=== PATIENT | male | born 1940 | race Caucasian/White ===

== ENCOUNTER 2016-12-04 08:39 | Emergency (ER) | payer MEDICARE, OTHER ==
[~2016-12-04] VITALS: Wt 63.0 kg
--- NOTE | 2016-12-04 09:44 | RADRPT ---
PROCEDURE: CT Brain without. CLINICAL INDICATION: Occipital headache. TECHNIQUE: A CT of the brain was performed on multidetector high-resolution CT scanner utilizing a xial sections from the skull base through the vertex without contrast. The scan was reviewed in sof t tissue brain and high frequency resolution bone algorithm windows. Images were reviewed on a high -resolution PACS workstation. One or more the following does reduction techniques were utilized: Aut omated exposure control, adjustment of the mA/ or kV according to patient's size, or use of iterativ e reconstruction technique. The exam CTDI = 43.68 mGy and the DLP = 720.23 mGy-cm. COMPARISON: None available. FINDINGS: The ventricles and sulci are mildly prominent indicative of volume loss. There is no intracranial h emorrhage, mass effect or midline shift. No abnormal intra-axial or extra-axial fluid collections a re seen. The gonzales/white matter differentiation is preserved. There are mild scattered foci of hypoattenuation in the white matter, which are nonspecific in etiol ogy but likely reflect chronic small vessel ischemic changes. Small lacunar infarct is noted in the right lentiform nucleus. There are mild intracranial vascular calcifications consistent with atheros clerosis. The visualized paranasal sinuses are essentially clear. There is thinning of bilateral pema s indicative of prior lens replacement. IMPRESSION: 1. No acute intracranial hemorrhage, transcortical infarction or mass effect. 2. Mild intracranial atherosclerosis and chronic small vessel ischemic changes. 3. Small lacunar infarct in the right lentiform nucleus. 4. Mild generalized cerebral volume loss. RPTAT: HH .Nat Angela MD, MD Date Time Electronically viewed and signed by .Nat Angela MD, MD on 12/04/2016 09:44 .N/
[2016-12-04 09:51] LABS: ADD SCAN DIFF NO
[2016-12-04 09:55] LABS: BASOPHILS % 0.4 % (0.0-2.0); EOSINOPHILS # 0.2 10^3/ul (0.0-0.5); EOSINOPHILS % 2.9 % (0.0-7.0); HEMATOCRIT 43.9 % (42.0-52.0); HEMOGLOBIN 14.2 g/dl (14.0-18.0); LYMPHOCYTES # 1.5 10^3/ul (0.8-2.9); LYMPHOCYTES % 20.1 % (15.0-51.0); MEAN CORPUSCULAR HEMOGLOBIN 30.3 pg (29.0-33.0); MEAN CORPUSCULAR HGB CONC 32.3 g/dl (32.0-37.0); MEAN CORPUSCULAR VOLUME 93.8 fl (82.0-101.0); MEAN PLATELET VOLUME 10.3 fl (7.4-10.4); MONOCYTE # 0.6 10^3/ul (0.3-0.9); MONOCYTES % 7.6 % (0.0-11.0); NEUTROPHIL # 5.1 10^3/ul (1.6-7.5); NEUTROPHILS % 68.9 % (39.0-77.0); PLATELET COUNT 174 10^3/UL (140-415); RED BLOOD COUNT 4.68 10^6/ul (4.70-6.10); WHITE BLOOD COUNT 7.3 10^3/ul (4.8-10.8)
[2016-12-04 10:05] LABS: CHLORIDE 101 mmol/L (97-110); POTASSIUM 4.6 mmol/L (3.5-5.1); SODIUM 141 mmol/L (135-144)
[2016-12-04 10:08] LABS: ANION GAP 15 (8-16); BLOOD UREA NITROGEN 10 mg/dl (7-20); CARBON DIOXIDE 30 mmol/L (21-31); CREATININE 0.91 mg/dl (0.61-1.24); GLUCOSE 106 mg/dl (70-220)
[2016-12-04 10:09] LABS: CALCIUM 9.2 mg/dl (8.4-10.2)
[2016-12-04 10:22] LABS: TROPONIN-I < 0.012 ng/ml (0.00-0.12)
--- NOTE | 2016-12-04 13:06 | ERD ---
ER Documentation Chief Complaint Date/Time DATE: 12/04/16 TIME: 13:00 Chief Complaint HEADACHE X 2 DAYS HPI 76-year-old male with history of hypertension comes in the emergency room with a occipital headache that he has had for about 2 days now. He states that he has had this headache previously on and off for a month or 2 at least. This patient states that his medication was changed to amlodipine and metoprolol, he was initially changed to amlodipine but he states that he was feeling like his heart rate was too fast and therefore his primary care physician Dr. Melo started him on metoprolol. He does not recall what his previous medications were, at the new antihypertensive medication was started in the beginning of October, followed by metoprolol beginning of October last month. Headache is a pressure-like sensation, intermittent, and states that he feels like it is his "pressure". He denies any blurred vision, nausea, vomiting. He denies chest pain or shortness of breath. He denies dysuria, urgency, frequency. Denies abdominal pain. ROS All systems reviewed and are negative except as per history of present illness. Allergies Allergies: Coded Allergies: No Known Allergy (Unverified , 12/04/16) PMhx/Soc History of Surgery: No Anesthesia Reaction: No Hx Neurological Disorder: No Hx Respiratory Disorders: No Hx Cardiac Disorders: Yes (HTN) Hx Psychiatric Problems: No Hx Miscellaneous Medical Probl: No Hx Alcohol Use: No Hx Substance Use: No Hx Tobacco Use: No Physical Exam Vitals Vital Signs Date Time Temp Pulse Resp B/P Pulse Ox O2 Delivery O2 Flow Rate FiO2 12/04/16 08:40 98.1 58 18 172/71 98 Physical Exam General: Well-developed, well-nourished. The patient appears in no acute distress. HEENT: Head is normocephalic, atraumatic. No scleral icterus. Neck: Supple. Nontender. Lungs: Clear to auscultation. Normal air movement. Heart: Regular rate and rhythm. S1 and S2 are normal. No murmurs, gallops, or rubs. Abdomen: Soft, nontender, nondistended. Bowel sounds are normoactive. Extremities: No clubbing or cyanosis. Normal pulses. Moving extremities x 4. No weakness. Neurologic: Alert and oriented 3. No focal deficits. Skin: Normal turgor. No rash or lesions. Result Diagram: 12/04/16 0937 12/04/16 0937 Results 24 hrs Laboratory Tests Test 12/04/16 09:37 White Blood Count 7.310^3/ul Red Blood Count 4.6810^6/ul Hemoglobin 14.2g/dl Hematocrit 43.9% Mean Corpuscular Volume 93.8fl Mean Corpuscular Hemoglobin 30.3pg Mean Corpuscular Hemoglobin Concent 32.3g/dl Red Cell Distribution Width 13.0% Platelet Count 36530^3/UL Mean Platelet Volume 10.3fl Neutrophils % 68.9% Lymphocytes % 20.1% Monocytes % 7.6% Eosinophils % 2.9% Basophils % 0.4% Nucleated Red Blood Cells % 0.0/100WBC Neutrophils # 5.110^3/ul Lymphocytes # 1.510^3/ul Monocytes # 0.610^3/ul Eosinophils # 0.210^3/ul Basophils # 0.010^3/ul Nucleated Red Blood Cells # 0.010^3/ul Sodium Level 141mmol/L Potassium Level 4.6mmol/L Chloride Level 101mmol/L Carbon Dioxide Level 30mmol/L Anion Gap 15 Blood Urea Nitrogen 10mg/dl Creatinine 0.91mg/dl Glucose Level 106mg/dl Calcium Level 9.2mg/dl Troponin I < 0.012ng/ml PROCEDURE: CT Brain without. CLINICAL INDICATION: Occipital headache. TECHNIQUE: A CT of the brain was performed on multidetector high-resolution CT scanner utilizing axial sections from the skull base through the vertex without contrast. The scan was reviewed in soft tissue brain and high frequency resolution bone algorithm windows. Images were reviewed on a high- resolution PACS workstation. One or more the following does reduction techniques were utilized: Automated exposure control, adjustment of the mA/ or kV according to patient's size, or use of iterative reconstruction technique. The exam CTDI = 43.68 mGy and the DLP = 720.23 mGy-cm. COMPARISON: None available. FINDINGS: The ventricles and sulci are mildly prominent indicative of volume loss. There is no intracranial hemorrhage, mass effect or midline shift. No abnormal intra- axial or extra-axial fluid collections are seen. The gonzales/white matter differentiation is preserved. There are mild scattered foci of hypoattenuation in the white matter, which are nonspecific in etiology but likely reflect chronic small vessel ischemic changes. Small lacunar infarct is noted in the right lentiform nucleus. There are mild intracranial vascular calcifications consistent with atherosclerosis. The visualized paranasal sinuses are essentially clear. There is thinning of bilateral lens indicative of prior lens replacement. IMPRESSION: 1. No acute intracranial hemorrhage, transcortical infarction or mass effect. 2. Mild intracranial atherosclerosis and chronic small vessel ischemic changes. 3. Small lacunar infarct in the right lentiform nucleus. 4. Mild generalized cerebral volume loss. RPTAT: HH .Nat Angela MD, MD Date Time Electronically viewed and signed by .Nat Angela MD, MD on 12/04/2016 09: 44 .N/ 12-lead EKG(interpreted by supervising physician): By Dr. Burris Rate/Rhythm: Normal Sinus Rhythm, rate of 53, first-degree AV block QRS, ST, T-waves: No changes consistent w/ acute ischemia, no intervals, no dysrhythmias, no ectopy Impression: No evidence of ischemia or arrhythmia Procedures/MDM 76-year-old male presents with headache, differential diagnosis includes migraine, tension headache, encephalitis, meningitis, dissection, TIA, stroke, mass, UTI. Patient does not show any signs of hypertensive emergency, his blood pressure was 172/71, unlikely hypertensive urgency. He states that he has had this headache on and off, worse over the last 2 days. It was advised to obtain a urine analysis from the patient, he tried to use the restroom however he eventually eloped from the emergency department stating that he was here for headache, does not have any "urinary problems". The case was reviewed and discussed with Dr. Burris who agrees with the plan of care including labs, treatment, and advanced imaging as appropriate. Patient's blood pressure was elevated (>120/80) but appears stable without evidence of hypertension emergency or urgency. The patient was counseled about the risks of hypertension and urged to pursue outpatient monitoring and therapy within a week with their primary care physician. Departure Diagnosis: Primary Impression: Headache Condition: Good ALFREDO, SHYLA PA-C Dec 04, 2016 13:06
== END 2016-12-04 13:20 | disposition left against medical advice (07) ==
LOC: FTE 08:39 → EDSEX 08:39 → FTE 13:20
DX: R51 Headache (principal); I10 Essential (primary) hypertension
CPT/HCPCS: 36415; 70450; 80048; 84484; 85025; 93005

== ENCOUNTER 2017-07-23 10:52 | Emergency (ER) | payer MEDICARE, OTHER ==
[~2017-07-23] VITALS: Wt 78.0 kg
[2017-07-23] MEDS ORDERED: SOD CHLORIDE 0.9% 1,000 ML IV STA (11:16)
--- NOTE | 2017-07-23 11:20 | ERD ---
ER Documentation Chief Complaint Chief Complaint DIZZINESS SINCE YESTERDAY, WHEN MOVES HEAD FEELS DIZZY HPI 77-year-old man brought in by family members for dizziness., vertigo, and occipital headache. Symptoms exacerbated rotating his head and neck 1 day. He has had multiple similar episodes in the past and has these symptoms about 2- 3 times per year. He was seen and evaluated for these symptoms about 7 months ago here at this emergency department, workup was unrevealing. Patient denies chest pain or shortness of breath, no fevers or chills, no falls, no vomiting or diarrhea, no slurred speech, no weakness in his arms or legs. ROS All systems reviewed and are negative except as per history of present illness. Medications Home Meds Reported Medications Amlodipine Besylate* (Norvasc*) 5 Mg Tablet, 5 MG PO DAILY, TAB 07/23/17 Hydrochlorothiazide* (Hydrochlorothiazide*) 12.5 Mg Tablet, 12.5 MG PO DAILY, # 30 TAB 07/23/17 Meclizine Hcl* (Meclizine Hcl*) 25 Mg Tablet, 25 MG PO Q8H Y for DIZZINESS, TAB 07/23/17 Metoprolol Tartrate* (Lopressor*) 25 Mg Tab, 25 MG PO DAILY, #60 TAB 07/23/17 Terazosin Hcl* (Terazosin Hcl*) 10 Mg Capsule, 10 MG PO HS, CAP 07/23/17 Allergies Allergies: Coded Allergies: lisinopril (Verified Allergy, Unknown, 07/23/17) valsartan (Verified Allergy, Unknown, 07/23/17) PMhx/Soc Hypertension, chronic recurrent dizziness, BPH History of Surgery: Yes (CABG) Anesthesia Reaction: No Hx Neurological Disorder: Yes (VERTIGO) Hx Respiratory Disorders: No Hx Cardiac Disorders: Yes (HTN) Hx Psychiatric Problems: No Hx Miscellaneous Medical Probl: No Hx Alcohol Use: No Hx Substance Use: No Hx Tobacco Use: No Smoking Status: Never smoker FmHx Family History: No diabetes Physical Exam Vitals Vital Signs Date Time Temp Pulse Resp B/P Pulse Ox O2 Delivery O2 Flow Rate FiO2 07/23/17 10:55 97.8 70 18 144/65 99 Physical Exam GENERAL: Well-developed, well-nourished, well-hydrated, in no apparent distress , looks nontoxic in appearance HEENT: Moist mucous membranes, pink conjunctiva, no cervical spine tenderness or step-off deformities, no goiter, no jaundice or icterus, extraocular movements intact without pain. No submandibular induration, and no pharyngeal erythema NEURO: Alert and oriented 3, cranial nerves II through XII intact bilaterally, pupils equal round reactive to light, no focal deficits or facial asymmetry, sensation intact distally Strength 5/5 in upper and lower extremities bilaterally CARDIAC: Regular rate and rhythm, no murmurs rubs or gallops LUNGS: Clear bilaterally no wheezing crackles or stridor ABDOMEN: Soft nontender, no guarding, no rigidity, no rebound, no psoas sign no obturator sign. Normoactive bowel sounds SKIN: Warm and dry to touch, no abrasions, contusions, or hematomas, no lacerations, no ecchymosis, no target lesions, and without ulcers EXTREMITIES: No clubbing cyanosis or edema, calves are bilaterally symmetrical, no Homans sign, no popliteal cord sign. Distal pulses equal and bilateral PSYCH: Normal affect without agitation or irritability Result Diagram: 07/23/17 1125 07/23/17 1125 Results 24 hrs Laboratory Tests Test 07/23/17 11:25 07/23/17 11:40 White Blood Count 7.810^3/ul Red Blood Count 4.6510^6/ul Hemoglobin 14.2g/dl Hematocrit 41.9% Mean Corpuscular Volume 90.1fl Mean Corpuscular Hemoglobin 30.5pg Mean Corpuscular Hemoglobin Concent 33.9g/dl Red Cell Distribution Width 12.6% Platelet Count 01102^3/UL Mean Platelet Volume 10.2fl Neutrophils % 58.2% Lymphocytes % 28.7% Monocytes % 10.0% Eosinophils % 2.2% Basophils % 0.6% Nucleated Red Blood Cells % 0.0/100WBC Neutrophils # 4.610^3/ul Lymphocytes # 2.210^3/ul Monocytes # 0.810^3/ul Eosinophils # 0.210^3/ul Basophils # 0.110^3/ul Nucleated Red Blood Cells # 0.010^3/ul Sodium Level 141mmol/L Potassium Level 3.1mmol/L Chloride Level 100mmol/L Carbon Dioxide Level 33mmol/L Anion Gap 11 Blood Urea Nitrogen 18mg/dl Creatinine 1.05mg/dl Glucose Level 121mg/dl Calcium Level 9.1mg/dl Total Bilirubin 1.7mg/dl Direct Bilirubin 0.00mg/dl Indirect Bilirubin 1.7mg/dl Aspartate Amino Transf (AST/SGOT) 34IU/L Alanine Aminotransferase (ALT/SGPT) 39IU/L Alkaline Phosphatase 88IU/L Troponin I < 0.012ng/ml Total Protein 7.4g/dl Albumin 3.7g/dl Globulin 3.70g/dl Albumin/Globulin Ratio 1.00 Lipase 49U/L Urine Color YELLOW Urine Clarity CLEAR Urine pH 6.0 Urine Specific Galva 1.020 Urine Ketones NEGATIVEmg/dL Urine Nitrite NEGATIVEmg/dL Urine Bilirubin NEGATIVEmg/dL Urine Urobilinogen NEGATIVEmg/dL Urine Leukocyte Esterase NEGATIVELeu/ul Urine Hemoglobin NEGATIVEmg/dL Urine Glucose NEGATIVEmg/dL Urine Total Protein NEGATIVEmg/dl Current Medications Medications (Trade) Dose Ordered Sig/Carlos Route PRN Reason Start Time Stop Time Status Last Admin Dose Admin Sodium Chloride (NS) 1,000 ml @ 1,000 mls/hr Q1H STAT IV 07/23/17 11:16 07/23/17 12:15 DC 07/23/17 11:16 Procedures/MDM IV line was established patient was placed on cardiac rn rhythm strip revealed a sinus rhythm at about 70 bpm with upright P and T waves. Patient was afebrile CT scan of the brain was performed that was negative for acute bleed mass or shift. Chest X-ray 1V Interpreted by me: Soft Tissue: No acute abnormalities Bones: No acute abnormalities Mediastinum/Cardiac Silhouette/Lungs: No acute abnormalities EKG performed, read by me revealed a normal sinus rhythm at 66 bpm, first- degree atrial ventricular block at 206 ms, left axis deviation, narrow QRS complex, no concerning ST elevations or depressions noted CBC and electrolytes were normal, liver function tests were normal, troponin was negative. Urine analysis was negative for infection. Patient has had multiple similar episodes in the past, it seems with hypertension patient develops dizziness which occurs about 2-3 times per year, and sometimes he develops headaches. His neurologic exam was repeated by me at the bedside prior to discharge and remained normal, blood pressure vital signs are normal, and patient is asymptomatic. Differential diagnoses considered, included but not limited to acute coronary syndrome, pulmonary embolism, aortic dissection, abdominal aortic aneurysm, sepsis, stroke, meningitis, encephalitis, pneumonia, appendicitis, cholecystitis , bowel obstruction, pyelonephritis, nephrolithiasis, cystitis, as well as metabolic, hematologic, and electrolyte abnormalities. As well as abscess, cellulitis, fractures, and dislocations. Patient feels much better at this time, and vital signs are normal, symptoms have improved. I did give strict instructions to return to the ED if symptoms continue or worsen, patient will otherwise follow-up with primary care physician. Patient understood instructions and agreed to plan. Disclaimer: Inadvertent spelling and grammatical errors are likely due to EHR/ dictation software use and do not reflect on the overall quality of patient care. Also, please note that the electronic time recorded on this note does not necessarily reflect the actual time of the patient encounter. Departure Diagnosis: Primary Impression: Dizziness Additional Impressions: Vertigo Headache Headache type: tension-type Headache chronicity pattern: acute headache Intractability: not intractable Qualified Code: G44.209 - Acute non intractable tension-type headache Hypertension Hypertension type: essential hypertension Qualified Code: I10 - Essential hypertension Condition: Good KRISTY JACKSON MD Jul 23, 2017 11:20
--- NOTE | 2017-07-23 11:33 | RADRPT ---
PROCEDURE: XR Chest. CLINICAL INDICATION: shortness of breath TECHNIQUE: Single portable view of the chest was obtained COMPARISON: None FINDINGS: There is mild cardiomegaly. The thoracic aorta is calcified. There is mild pulmonary vascular congestion. There are bilateral perihilar and lower lobe infiltrat es. There is no evidence of pleural effusion.. There is no pneumothorax. The bones and soft tissues are unremarkable. RPTAT: AA IMPRESSION: Mild cardiomegaly with mild pulmonary vascular congestion. .Randy Juarez MD, MD Date Time Electronically viewed and signed by .Randy Juarez MD, MD on 07/23/2017 11:33 .S/
[2017-07-23 11:34] LABS: BASOPHIL # 0.1 10^3/ul (0.0-0.1); BASOPHILS % 0.6 % (0.0-2.0); EOSINOPHILS # 0.2 10^3/ul (0.0-0.5); EOSINOPHILS % 2.2 % (0.0-7.0); HEMATOCRIT 41.9 % (42.0-52.0); HEMOGLOBIN 14.2 g/dl (14.0-18.0); LYMPHOCYTES # 2.2 10^3/ul (0.8-2.9); LYMPHOCYTES % 28.7 % (15.0-51.0); MEAN CORPUSCULAR HEMOGLOBIN 30.5 pg (29.0-33.0); MEAN CORPUSCULAR HGB CONC 33.9 g/dl (32.0-37.0); MEAN CORPUSCULAR VOLUME 90.1 fl (82.0-101.0); MEAN PLATELET VOLUME 10.2 fl (7.4-10.4); MONOCYTE # 0.8 10^3/ul (0.3-0.9); NEUTROPHIL # 4.6 10^3/ul (1.6-7.5); NEUTROPHILS % 58.2 % (39.0-77.0); PLATELET COUNT 183 10^3/UL (140-415); RED BLOOD COUNT 4.65 10^6/ul (4.70-6.10); RED CELL DISTRIBUTION WIDTH 12.6 % (11.5-14.5); WHITE BLOOD COUNT 7.8 10^3/ul (4.8-10.8)
--- NOTE | 2017-07-23 11:44 | RADRPT ---
PROCEDURE: CT head without intravenous contrast CLINICAL INDICATION: Concern for hemorrhage. COMPARISON: None relevant listed. TECHNIQUE: Axial CT images from skull base to vertex. DICOM images are available. DOSE: The estimated administered radiation dose was CTDI vol = 42 mGy. DLP = 720 mGy-cm. One or mor e of the following dose reduction techniques were used: automated exposure control, adjustment of th e mA and/or kV according to patient size, or use of iterative reconstruction. FINDINGS: Limitations: Motion degrades image quality. Parenchyma: No acute hemorrhage, large territorial infarction, or mass. Old infarction within the ri ght lentiform nucleus. Mild amount of periventricular and subcortical white matter hypodensity, a no nspecific finding often associated with chronic microangiopathy. Ventricles: No ventriculomegaly or ventricular effacement. Extra-axial spaces: No herniation or midline shift. Paranasal sinuses: Clear. Mastoids and middle ears: Clear. Visualized orbits: Bilateral lens replacements. Vessels: Mild calcified atherosclerotic arterial plaque. Bones: Normal. Extracranial soft tissues: Normal. Additional comment: None. IMPRESSION: 1. No acute intracranial hemorrhage. 2. Chronic senescent findings characterized by volume loss and white matter changes. RPTAT: PP Physician Kartik Date Time Electronically viewed and signed by Physician Kartik on 07/23/2017 11:43 LG/
[2017-07-23 12:01] LABS: ALANINE AMINOTRANSFERASE 39 IU/L (13-69); ALBUMIN 3.7 g/dl (3.3-4.9); ALKALINE PHOSPHATASE 88 IU/L (42-121); ANION GAP 11 (8-16); ASPARTATE AMINO TRANSFERASE 34 IU/L (15-46); BILIRUBIN,INDIRECT 1.7 mg/dl (0-1.1); BILIRUBIN,TOTAL 1.7 mg/dl (0.2-1.3); BLOOD UREA NITROGEN 18 mg/dl (7-20); CALCIUM 9.1 mg/dl (8.4-10.2); CARBON DIOXIDE 33 mmol/L (21-31); CHLORIDE 100 mmol/L (97-110); CREATININE 1.05 mg/dl (0.61-1.24); GLUCOSE 121 mg/dl (70-220); POTASSIUM 3.1 mmol/L (3.5-5.1); SODIUM 141 mmol/L (135-144); TOTAL PROTEIN 7.4 g/dl (6.1-8.1)
[2017-07-23 12:03] LABS: ADD UMIC NO; UR ASCORBIC ACID NEGATIVE (NEGATIVE); UR BILIRUBIN (Dip) NEGATIVE (NEGATIVE); UR BLOOD (Dip) NEGATIVE (NEGATIVE); UR CLARITY CLEAR (CLEAR); UR COLOR YELLOW (YELLOW); UR GLUCOSE (Dip) NEGATIVE (NEGATIVE); UR KETONES (Dip) NEGATIVE (NEGATIVE); UR LEUKOCYTE ESTERASE (Dip) NEGATIVE Leu/ul (NEGATIVE); UR NITRITE (Dip) NEGATIVE (NEGATIVE); UR TOTAL PROTEIN (Dip) NEGATIVE (NEGATIVE); UR UROBILINOGEN (Dip) NEGATIVE (NEGATIVE)
[2017-07-23] MEDS ORDERED: TERA10CA42 PO (12:07)
[2017-07-23] MEDS ORDERED: MECL-77 PO (12:08)
[2017-07-23] MEDS ORDERED: METO-448 PO (12:08)
[2017-07-23] MEDS ORDERED: HYDR12.58 PO (12:11)
[2017-07-23] MEDS ORDERED: AMLO5TAB4 PO (12:13)
[2017-07-23 12:15] LABS: TROPONIN-I < 0.012 ng/ml (0.00-0.12)
[2017-07-23] MEDS ORDERED: ONDA4TAB8 PO (12:42)
[2017-07-23 13:37] VITALS: BP 145/63; PULSE 62; RESP 16; TEMP 97.8
== END 2017-07-23 13:38 | disposition home or self-care (01) ==
LOC: E/R 10:52
DX: G44.209 Tension-type headache, unspecified, not intractable (principal); I10 Essential (primary) hypertension; R40.2142 Coma scale, eyes open, spontaneous, at arrival to emergency department; R40.2252 Coma scale, best verbal response, oriented, at arrival to emergency department; R40.2362 Coma scale, best motor response, obeys commands, at arrival to emergency department; Z98.61 Coronary angioplasty status
CPT/HCPCS: 36415; 70450; 71010; 80053; 81003; 83690; 84484; 85025; 99285; J7030

== ENCOUNTER 2017-09-06 05:34 | Emergency (ER) | END 2017-09-06 15:37 | disposition left against medical advice (07) ==